=== PATIENT | male | born 1980 | race Caucasian/White ===

== ENCOUNTER 2023-03-30 16:10 | Emergency (ER) | payer SELFPAY ==
[2023-03-30] MEDS ORDERED: Vasopressin 100 UNIT in Dextrose 5% in Water 245 ML IV SCH ×2 (17:15)
== END 2023-03-30 17:41 ==
LOC: JD.ED 16:10
DX: S09.90XA Unspecified injury of head, initial encounter (principal); W18.09XA Striking against other object with subsequent fall, initial encounter
CPT/HCPCS: 70450; 70450-26; 72125; 72125-26; 99282; 99284